=== PATIENT | male | born 1955 | race Caucasian/White ===

== ENCOUNTER 2022-12-24 19:30 | Outpatient (CLI) | payer MEDICARE | END 2022-12-24 19:31 | disposition home or self-care (01) | LOC: SLEEPLAB 19:30 | PROVIDERS: ATTEND Family Medicine | DX: G47.33 Obstructive sleep apnea (adult) (pediatric) (principal) | CPT/HCPCS: 95811 ==

== ENCOUNTER 2023-06-04 09:03 | Outpatient (CLI) | payer MEDICARE | END 2023-06-04 09:04 | disposition home or self-care (01) | LOC: NM 09:03 | PROVIDERS: ATTEND Urology | DX: C67.1 Malignant neoplasm of dome of bladder (principal) | CPT/HCPCS: 78306; A9503 ==

== ENCOUNTER 2024-04-28 12:31 | Outpatient (CLI) | payer MEDICARE | END 2024-04-28 12:32 | disposition home or self-care (01) | LOC: SCSCT 12:31 | PROVIDERS: ATTEND Urology | DX: C67.1 Malignant neoplasm of dome of bladder (principal); N18.32 Chronic kidney disease, stage 3b; J90 Pleural effusion, not elsewhere classified; R60.9 Edema, unspecified | CPT/HCPCS: 74176 ==

== ENCOUNTER 2024-07-20 21:34 | Inpatient (IN) | payer MEDICARE ==
[2024-07-20] MEDS ORDERED: Ondansetron ODT 4 MG TAB PO PRN (23:35)
[2024-07-20] MEDS ORDERED: Ondansetron PF 4 MG/2 ML Vial IVP PRN (23:35)
[2024-07-20] MEDS ORDERED: Glucagon 1 MG/ML KIT IM PRN (23:41)
[2024-07-20] MEDS ORDERED: Dextrose 5% in Water 1,000 ML IV PRN (23:41)
[2024-07-20] MEDS ORDERED: Dextrose 50% Abboject 50 ML SYRINGE SLOW IVP PRN (23:41)
[2024-07-21] MEDS ORDERED: Insulin Lispro 100 UNIT/ML 10 ML VIAL SC PRN (00:25)
[2024-07-21] MEDS: Propranolol HCl 20 MG TAB PO SCH ×2 (00:55→08:59)
[2024-07-21] MEDS: Atorvastatin Calcium 40 MG TAB PO SCH ×2 (00:55→20:22)
[2024-07-21] MEDS: Carbidopa/Levodopa 25-100 mg Tablet PO SCH ×3 (00:55→08:59)
[2024-07-21] MEDS: Ipratropium/Albuterol 3 ML NEB ONE (01:53)
[2024-07-21] MEDS: Aripiprazole 10 MG TAB PO SCH ×2 (01:54→20:21)
[2024-07-21] MEDS: Finasteride 5 MG TAB PO SCH ×2 (01:55→20:22)
[2024-07-21] MEDS: Pantoprazole DR 40 MG TAB PO SCH (01:55)
[2024-07-21] MEDS: Furosemide 20 MG (2 mL) VIAL SLOW IVP SCH (01:55)
[2024-07-21] MEDS: Ipratropium/Albuterol 3 ML NEB NEB SCH ×2 (02:02→12:48)
[2024-07-21 03:08] VITALS: BMI 38.0
[2024-07-21 05:03] LABS: #Basophils Less than 0.03 10x3/uL (0.0-0.2); %Basophils 0.2 % (0.0-1.0); %Lymphocytes 10.8 % (21.0-51.0); %Monocytes 12.4 % (0.0-10.0); %Neutrophils 75.2 % (42.0-75.0); Hematocrit 32.8 % (42.0-52.0); Hemoglobin 10.4 g/dL (14.0-18.0); Mean Corpuscular HGB CONC 31.7 g/dL (32.0-36.0); Mean Corpuscular Hemoglobin 25.2 pg (27.0-31.0); Mean Corpuscular Volume 79.4 fL (78.0-98.0); Mean Platelet Volume 9.8 fL (7.4-10.4); Platelet Count 115 10x3/uL (130-400); RBC Distribution Width 16.9 % (11.5-14.5); Red Blood Cell (RBC) Count 4.13 mill/uL (4.70-6.10)
[2024-07-21 05:07] LABS: Anion Gap 16 mmol/L (10-20); BUN (Urea Nitrogen) 58 mg/dL (8.4-25.7); Calc. Creatinine Clearance 40 mL/min (70-130); Calcium 8.6 mg/dL (7.8-10.44); Carbon Dioxide 18 mmol/L (23-31); Chloride 107 mmol/L (98-107); Estimated GFR 21; Glucose 207 mg/dL (80-115); Potassium 4.3 mmol/L (3.5-5.1); Sodium 137 mmol/L (136-145)
[2024-07-21] MEDS: Furosemide 40 MG (4 mL) VIAL SLOW IVP SCH (05:38)
[2024-07-21] MEDS: Heparin 5,000 UNITS/ML VIAL SC SCH (08:58)
[2024-07-21] MEDS: DULoxetine 60 MG CAP PO SCH (08:59)
[2024-07-21] MEDS: Aspirin 81 mg Enteric Coated Tablet PO SCH (08:59)
[2024-07-21] MEDS: Clopidogrel Bisulfate 75 MG TAB PO SCH (08:59)
[2024-07-21] MEDS ORDERED: DULoxetine 60 MG CAP PO SCH (09:00)
[2024-07-21] MEDS ORDERED: Carbidopa/Levodopa 25-100 mg Tablet PO SCH (09:00)
[2024-07-21] MEDS: Insulin Lispro 100 UNIT/ML 10 ML VIAL SC PRN (13:25)
[2024-07-21] MEDS: Benzonatate 100 MG CAP PO SCH (15:25)
[2024-07-21] MEDS: guaiFENesin ER 600 MG TAB PO SCH (20:22)
[2024-07-22] MEDS: Ipratropium/Albuterol 3 ML NEB EZPAP PRN (04:30)
[2024-07-22 04:49] LABS: #Basophils Less than 0.03 10x3/uL (0.0-0.2); #Eosinphils Less than 0.03 10x3/uL (0.0-0.7); %Basophils 0.2 % (0.0-1.0); %Monocytes 16.3 % (0.0-10.0); %Neutrophils 69.3 % (42.0-75.0); Hematocrit 28.8 % (42.0-52.0); Hemoglobin 9.3 g/dL (14.0-18.0); Mean Corpuscular HGB CONC 32.3 g/dL (32.0-36.0); Mean Corpuscular Hemoglobin 25.8 pg (27.0-31.0); Mean Platelet Volume 10.7 fL (7.4-10.4); Platelet Count 96 10x3/uL (130-400); RBC Distribution Width 16.7 % (11.5-14.5)
[2024-07-22 04:53] LABS: Phosphorus 4.2 mg/dL (2.3-4.7)
[2024-07-22 04:57] LABS: Anion Gap 15 mmol/L (10-20); BUN (Urea Nitrogen) 59 mg/dL (8.4-25.7); Calc. Creatinine Clearance 37 mL/min (70-130); Calcium 8.3 mg/dL (7.8-10.44); Carbon Dioxide 20 mmol/L (23-31); Chloride 105 mmol/L (98-107); Estimated GFR 19; Glucose 180 mg/dL (80-115); Iron 11 ug/dL (65-175); Potassium 3.7 mmol/L (3.5-5.1); Sodium 136 mmol/L (136-145)
[2024-07-22] MEDS: Acetaminophen 325 MG TAB PO PRN (06:22)
[2024-07-22] MEDS: Ferrous Sulfate 325 MG TAB PO SCH (09:02)
[2024-07-23 05:27] LABS: #Basophils Less than 0.03 10x3/uL (0.0-0.2); %Basophils 0.2 % (0.0-1.0); %Eosinophils 0.7 % (0.0-10.0); %Lymphocytes 18.7 % (21.0-51.0); %Monocytes 17.3 % (0.0-10.0); %Neutrophils 62.6 % (42.0-75.0); Hematocrit 31.6 % (42.0-52.0); Hemoglobin 10.1 g/dL (14.0-18.0); Mean Corpuscular Hemoglobin 25.4 pg (27.0-31.0); Mean Corpuscular Volume 79.6 fL (78.0-98.0); Mean Platelet Volume 10.3 fL (7.4-10.4); Platelet Count 96 10x3/uL (130-400); RBC Distribution Width 16.6 % (11.5-14.5); Red Blood Cell (RBC) Count 3.97 mill/uL (4.70-6.10)
[2024-07-23 05:28] LABS: Anion Gap 15 mmol/L (10-20); BUN (Urea Nitrogen) 57 mg/dL (8.4-25.7); Calc. Creatinine Clearance 35 mL/min (70-130); Calcium 8.3 mg/dL (7.8-10.44); Carbon Dioxide 20 mmol/L (23-31); Chloride 104 mmol/L (98-107); Estimated GFR 19; Glucose 162 mg/dL (80-115); Potassium 3.4 mmol/L (3.5-5.1); Sodium 136 mmol/L (136-145)
[2024-07-23] MEDS: Furosemide 40 MG (4 mL) VIAL SLOW IVP SCH (09:16)
[2024-07-24 04:57] LABS: #Basophils Less than 0.03 10x3/uL (0.0-0.2); %Basophils 0.5 % (0.0-1.0); %Eosinophils 1.4 % (0.0-10.0); %Lymphocytes 24.5 % (21.0-51.0); %Monocytes 15.7 % (0.0-10.0); %Neutrophils 57.7 % (42.0-75.0); Hematocrit 31.6 % (42.0-52.0); Hemoglobin 10.2 g/dL (14.0-18.0); Mean Corpuscular HGB CONC 32.3 g/dL (32.0-36.0); Mean Corpuscular Hemoglobin 25.1 pg (27.0-31.0); Mean Corpuscular Volume 77.6 fL (78.0-98.0); Mean Platelet Volume 10.1 fL (7.4-10.4); Platelet Count 122 10x3/uL (130-400); RBC Distribution Width 16.3 % (11.5-14.5); Red Blood Cell (RBC) Count 4.07 mill/uL (4.70-6.10)
[2024-07-24 05:38] LABS: Anion Gap 14 mmol/L (10-20); BUN (Urea Nitrogen) 55 mg/dL (8.4-25.7); Calc. Creatinine Clearance 35 mL/min (70-130); Calcium 8.2 mg/dL (7.8-10.44); Carbon Dioxide 23 mmol/L (23-31); Chloride 103 mmol/L (98-107); Estimated GFR 19; Glucose 176 mg/dL (80-115); Potassium 3.3 mmol/L (3.5-5.1); Sodium 137 mmol/L (136-145)
[2024-07-24] MEDS: Potassium Chloride 20 MEQ TAB PO SCH (12:07)
[2024-07-24 14:58] VITALS: BP 160/78; TEMP 97
== END 2024-07-24 14:58 | disposition home or self-care (01) | DRG 291 ==
LOC: 2NO 22:52
PROVIDERS: ADMIT Internal Medicine; ATTEND Internal Medicine
PROC: 5A09357 Assistance with Respiratory Ventilation, Less than 24 Consecutive Hours, Continuous Positive Airway Pressure (ICD-10-PCS; principal; 2024-07-21)
DX: I13.0 Hypertensive heart and chronic kidney disease with heart failure and stage 1 through stage 4 chronic kidney disease, or unspecified chronic kidney disease (principal); I50.33 Acute on chronic diastolic (congestive) heart failure; N18.4 Chronic kidney disease, stage 4 (severe); N17.9 Acute kidney failure, unspecified; E11.22 Type 2 diabetes mellitus with diabetic chronic kidney disease; G20.A1 Parkinson's disease without dyskinesia, without mention of fluctuations; I25.10 Atherosclerotic heart disease of native coronary artery without angina pectoris; E78.5 Hyperlipidemia, unspecified; G47.33 Obstructive sleep apnea (adult) (pediatric); I48.0 Paroxysmal atrial fibrillation; K21.9 Gastro-esophageal reflux disease without esophagitis; N40.0 Benign prostatic hyperplasia without lower urinary tract symptoms; D63.1 Anemia in chronic kidney disease; Z88.2 Allergy status to sulfonamides; Z88.8 Allergy status to other drugs, medicaments and biological substances; Z79.899 Other long term (current) drug therapy; Z79.4 Long term (current) use of insulin; Z79.82 Long term (current) use of aspirin; Z95.5 Presence of coronary angioplasty implant and graft; Z90.89 Acquired absence of other organs; Z98.890 Other specified postprocedural states
CPT/HCPCS: 36415; 36416; 71045; 80048; 80053; 83540; 83880; 83970; 84100; 84145; 84484; 85025; 87804; 93005; 94640; 96374; J1644; J1815; J1940; J7620; U0002